=== PATIENT | female | born 1975 ===

== ENCOUNTER → 2023-01-01 10:41 | Outpatient (CLI) | payer OTHER, SELFPAY ==
--- NOTE | 2023-01-01 10:45 | DI.RAD.S_ITS ---
PROCEDURE: XR CERVICAL SPINE 4V OR 5V INDICATIONS: NECK PAIN TECHNIQUE: 5 total views of the cervical spine were acquired, including bilateral oblique views. COMPARISON: None. FINDINGS: Bones: No fractures or dislocations to the T1 level. Oblique images demonstrate no bony foraminal stenoses. There is straightening of the normal cervical lordosis. No focal AP alignment abnormality is seen. Mild to moderate disc space narrowing is seen at C5-C6. The disc heights otherwise appear well-preserved. On oblique images, there is moderate neural foraminal narrowing seen at C4-C5 on the left and at C5-C6 on the right, with milder neural foraminal narrowing seen elsewhere. Soft tissues: No prevertebral soft tissue swelling. The visualized lung apices are unremarkable. IMPRESSION: Cervical spine degenerative changes are seen, which are worst at C5-C6. Straightening of the normal cervical lordosis is seen, which is commonly observed in patients with muscular spasm. If it would be helpful for clinical management decision making, please consider a dedicated cervical spine MRI for further evaluation (assuming that there is no contraindication). Dictated by: Justyn Culver M.D. on 01/01/2023 at 10:23 Approved by: Justyn Culver M.D. on 01/01/2023 at 10:25
== END ==
PROVIDERS: PCP Student in an Organized Health Care Education/Training Program; Referring Provider Physical Medicine & Rehabilitation; Visit Provider Physical Medicine & Rehabilitation
DX: M50.122 Cervical disc disorder at C5-C6 level with radiculopathy (principal); M47.22 Other spondylosis with radiculopathy, cervical region; G56.23 Lesion of ulnar nerve, bilateral upper limbs
CPT/HCPCS: 72050; 99214

== ENCOUNTER → 2023-02-12 16:42 | Outpatient (CLI) | payer OTHER, SELFPAY ==
--- NOTE | 2023-02-12 16:43 | DI.MRI.S_ITS ---
PROCEDURE: MR CERVICAL SPINE WO CON INDICATIONS: C5-6 radiculopathy TECHNIQUE: Noncontrast sagittal T1 spin echo and T2 fast spin echo, sagittal STIR, foraminal oblique sagittal T2 fast spin echo, and axial gradient echo or T2 fast spin echo through the cervical spine. COMPARISON: None. FINDINGS: Image quality: Excellent. Alignment and Curvature: There is normal bony alignment. Bone Marrow: Marrow demonstrates normal overall signal. Spinal Cord: Visualized spinal cord has normal size and signal. No cerebellar tonsillar herniation. Paraspinous Soft Tissues: No paravertebral masses. Prevertebral soft tissues are normal in thickness. C2-C3: Normal appearance. C3-C4: Mild disc bulge. No canal stenosis or foraminal stenosis. C4-C5: Disc bulge abuts the cord. AP diameter of the canal is 10.6 mm. No foraminal stenosis. C5-C6: Large right posterior lateral disc protrusion significantly flattens the right ventral cord, result in right lateral recess stenosis, as well as severe right foraminal narrowing with right foraminal C6 nerve root impingement. There is moderate narrowing of the right kenrick canal. There is left uncovertebral joint hypertrophy resulting in moderate to severe left foraminal narrowing and left foraminal C6 nerve root impingement. C6-C7: Disc bulge. AP diameter of the canal is 12 mm. No foraminal stenosis. C7-T1: Normal appearance. IMPRESSION: 1. The significant findings are at C5-C6. There is large right posterior lateral disc protrusion resulting in moderate narrowing of the right kenrick canal and severe right foraminal narrowing with right foraminal C6 nerve root impingement. There is also severe left foraminal narrowing with left foraminal C6 nerve root impingement. Dictated by: Jayjay Massey M.D. on 02/13/2023 at 9:08 Approved by: Jayjay Massey M.D. on 02/13/2023 at 9:20
== END ==
PROVIDERS: PCP Student in an Organized Health Care Education/Training Program; Referring Provider Physical Medicine & Rehabilitation; Visit Provider Physical Medicine & Rehabilitation
DX: M50.122 Cervical disc disorder at C5-C6 level with radiculopathy (principal); M48.02 Spinal stenosis, cervical region
CPT/HCPCS: 72141

== ENCOUNTER → 2023-03-22 12:27 | Outpatient (CLI) | payer OTHER, SELFPAY | PROVIDERS: Family Provider Student in an Organized Health Care Education/Training Program; PCP Student in an Organized Health Care Education/Training Program; Referring Provider Physical Medicine & Rehabilitation; Visit Provider Physical Medicine & Rehabilitation | DX: G56.23 Lesion of ulnar nerve, bilateral upper limbs (principal); M50.122 Cervical disc disorder at C5-C6 level with radiculopathy | CPT/HCPCS: 95886; 95909 ==